=== PATIENT | female | born 1995 | race Caucasian/White ===

== ENCOUNTER 2017-10-29 15:01 | Emergency (ER) | payer BC, SELFPAY ==
[2017-10-29 15:04] VITALS: BP 147/104; PULSE 82; RESP 17; TEMP 36.9; O2SAT 97; BMI 32.1
--- NOTE | 2017-10-29 15:22 | ED.DCSUM_ITS ---
- ER Visit Summary Date of Service: 10/29/17 Chief Complaint: [Joint pain] History of Present Illness: The patient is a 22 F [presents to the emergency department with pain in her joints for the last 13 weeks. Patient has seen her primary care physician for the same complaint who apparently did some testing for rheumatoid and came back negative. Patient states that she has had intermittent pain in her large joints as well as fingers. The pain typically gets worse throughout the day. Patient has not had any fevers. Patient denies recent illness. Patient does not believe she is . Patient's last menstrual period was 4 months ago however she is on control and about 4 weeks ago she took a test and it was negative. Patient is going through week and has had increased discomfort that ibuprofen, Advil, and Aleve is not helping with. Patient is requesting something a little bit stronger for pain that is nonnarcotic until she can get back into see her primary care physician whom she is scheduled to see in 4 days.] Physical Examination: [HEENT-PERRLA, EOMI. Cranial nerves II through XII grossly intact. TMs clear. Mucous membranes moist. No adenopathy. Cardiovascular-regular rate and rhythm without murmur or ectopy Lungs-clear to auscultation, chest wall stable without crepitus or subcu emphysema Abdomen-normoactive bowel sounds, soft, nontender, no rebound or rigidity, no peritoneal signs. Extremities-intact ?4, normal range of motion, normal pulses, atraumatic]. Evaluation of her joints do not reveal any erythema or edema. No significant discomfort noted with range of motion of her joints. Patient has no rashes. Test Results: [Patient refused any testing and states that she will follow-up with her primary care physician in 4 days.] Patient is nontoxic appearing and does not appear ill therefore I feel this is a reasonable option. Emergency Department Course and Treatment: [] Treatment Plan: [Patient will be given a prescription for tramadol] Disposition: [Discharged to home in stable condition] Impression: [Arthralgias-etiology uncertain] This note was generated with [employer] dictation software. It may contain incorrect words, spelling, and punctuation that were not noted in review of the chart prior to signing ED Disposition - Plan for ED Patient: Chief Complaint: Other, Pain/Inj Referrals: [facility] Doctor,Out of [Primary Care Provider] -
--- NOTE | 2017-10-29 15:22 | ED.DEP ---
ED Disposition - Plan for ED Patient: Chief Complaint: Other, Pain/Inj Instructions: ED Joint Pain Prescriptions: traMADol [Ultram] 50 mg PO Q4H PRN PRN 3 Days #20 tab PRN Reason: Pain Referrals: [facility] Doctor,Out of [Primary Care Provider] - 3-5 Days
== END 2017-10-29 15:34 | disposition home or self-care (01) ==
LOC: ED 15:24
PROVIDERS: Emergency Provider Emergency Medicine
DX: M25.50 Pain in unspecified joint (principal); I10 Essential (primary) hypertension; Z79.899 Other long term (current) drug therapy
CPT/HCPCS: 99282